=== PATIENT | female | born 1985 | race Caucasian/White ===

== ENCOUNTER 2018-02-17 22:37 | Emergency (ER) | payer SELFPAY ==
[~2018-02-17] VITALS: Ht 172.7 cm; Wt 81.6 kg
[2018-02-17 22:45] VITALS: Ht 172.7 cm; Wt 81.6 kg
[2018-02-18 00:12] VITALS: BP 129/78
== END 2018-02-18 00:12 | disposition other institution (70) ==
LOC: ED 22:37
DX: S00.83XA Contusion of other part of head, initial encounter (principal); Y08.89XA Assault by other specified means, initial encounter; Y93.89 Activity, other specified; Y92.89 Other specified places as the place of occurrence of the external cause; Y99.8 Other external cause status
CPT/HCPCS: J1885; Q0162

== ENCOUNTER 2018-02-17 22:37 | Emergency (ER) | payer OTHER | END 2018-02-18 00:12 | disposition other institution (70) | LOC: ED 22:37 | DX: Z02.89 Encounter for other administrative examinations (principal) ==

== ENCOUNTER 2019-04-25 14:29 | Emergency (ER) | payer OTHER ==
[~2019-04-25] VITALS: Ht 157.5 cm; Wt 79.8 kg
[2019-04-25 14:34] VITALS: BP 121/75; Ht 157.5 cm; Wt 79.8 kg
== END 2019-04-25 16:07 | disposition home or self-care (01) ==
LOC: ED 14:29
DX: M54.5 Low back pain (principal); Z98.890 Other specified postprocedural states
CPT/HCPCS: J1885

== ENCOUNTER 2020-01-09 14:02 | Emergency (ER) | payer OTHER ==
[~2020-01-09] VITALS: Ht 162.6 cm; Wt 79.4 kg
[2020-01-09 14:08] VITALS: BP 143/84; Ht 162.6 cm; Wt 79.4 kg
[2020-01-09 16:19] LABS: CALCIUM 9.1 mg/dL (8.5-10.1); CARBON DIOXIDE 30.3 mmol/L (21-32); CHLORIDE SERUM 104 mmol/L (98-107); CREATININE SERUM 0.6 mg/dL (0.6-1.0); GFR1 > 60 mL/min; GLUCOSE SERUM 81 mg/dL (74-106); POTASSIUM SERUM 3.9 mmol/L (3.5-5.1); SODIUM SERUM 141 mmol/L (136-145)
[2020-01-09 16:35] LABS: BASOPHIL % 0.1 % (0-2); PLATELET COUNT 294 x10^3mcL (130-400); RED CELL DISTRIBUTION WIDTH 12.5 % (11.5-14.5)
== END 2020-01-09 17:50 | disposition home or self-care (01) ==
LOC: ED 14:02
PROVIDERS: Emergency Medicine
DX: M79.10 Myalgia, unspecified site (principal); R51 Headache; R42 Dizziness and giddiness; R11.0 Nausea; Z98.890 Other specified postprocedural states
CPT/HCPCS: 36415; Q0092